=== PATIENT | female | born 1985 ===

== ENCOUNTER 2021-03-27 09:54 | Inpatient (IN) ==
[2021-03-27] MEDS ORDERED: Metoclopramide 10 MG/2 ML VIAL IVP ONE (10:12)
[2021-03-27] MEDS ORDERED: Oxytocin 20 units/ LR 1000 mL 20 UNIT/1,000 ML BAG IVC ONE (10:12)
[2021-03-27] MEDS ORDERED: CeFAZolin 2,000 MG/120 ML BAG IVPB ONE (10:12)
[2021-03-27] MEDS ORDERED: Ringers Solution, Lactated 1,000 ML IVC ONE (10:12)
[2021-03-27] MEDS ORDERED: Famotidine 20 MG/2 ML VIAL IVP ONE (10:12)
[2021-03-27] MEDS ORDERED: Ringers Solution, Lactated 1,000 ML IVC SCH ×2 (10:15→16:13)
[2021-03-27] MEDS ORDERED: Oxytocin 20 units/ LR 1000 mL 20 UNIT/1,000 ML BAG IVC SCH ×2 (10:15→16:13)
[2021-03-27] MEDS ORDERED: *HR* HYDROmorphone PF 0.5 MG/0.5 ML SYRINGE IVP PRN (11:13)
[2021-03-27] MEDS ORDERED: Ondansetron 4 MG/2 ML VIAL IVP PRN ×2 (11:13→16:13)
[2021-03-27] MEDS ORDERED: Promethazine 6.25 MG in Water for inj. (sterile) 20 ML IVPB PRN (11:13)
[2021-03-27 11:19] LABS: Basophils % 0.3 %; Eosinophils % 0.2 %; Hematocrit 37.8 % (35.3-44.9); Hemoglobin 12.6 g/dL (11.5-15.4); Immature Granulocytes % 0.6 % (0-4); Lymphocytes % 16.5 %; Mean Corpuscular HGB Conc 33.3 g/dL (31.6-35.5); Mean Corpuscular Hemoglobin 30.4 pg (28.0-33.3); Mean Corpuscular Volume 91.1 fL (83.0-100.0); Mean Platelet Volume 11.8 fL (9.4-12.4); Monocytes # 0.4 K/mcL (0.0-1.3); Monocytes % 6.6 %; Neutrophils # 4.7 K/mcL (1.6-8.9); Platelet Count 125 K/mcL (140-400); Red Blood Count 4.15 M/mcL (3.82-4.97); Red Cell Distribution Width 13.2 % (11.5-14.5); Segmented Neutrophils % 75.8 %; White Blood Count 6.2 K/mcL (4.3-11.1)
[2021-03-27 11:21] LABS: Influenza A PCR Negative (Negative); Influenza B PCR Negative (Negative); Resp. Syncytial Virus PCR Negative (Negative)
[2021-03-27 11:28] LABS: Amphetamine Screen,Urine Negative ng/mL (Cutoff=1000); Barbiturate Screen,Urine Negative ng/mL (Cutoff=200); Benzodiazepines Screen,Urine Negative ng/mL (Cutoff=200); Cannabinoid Screen,Urine Negative ng/mL (Cutoff = 50); Cocaine Screen,Urine Negative ng/mL (Cutoff= 300); Opiate Screen,Urine Negative ng/mL (Cutoff=300); Phencyclidine Screen,Urine Negative ng/mL (Cutoff=25)
[2021-03-27 11:39] LABS: SARS-CoV-2 by PCR (In House) Positive (Negative)
[2021-03-27] MEDS ORDERED: *HR* FentaNYL (PF) 100 MCG/2 ML VIAL ONE (11:44)
[2021-03-27] MEDS ORDERED: EPHEDrine 50 MG/ML VIAL ONE (11:44)
[2021-03-27] MEDS ORDERED: *HR* Morphine Sulfate/PF 10 MG/10 ML AMPUL ONE (11:44)
[2021-03-27] MEDS ORDERED: Ondansetron 4 MG/2 ML VIAL ONE (11:46)
[2021-03-27] MEDS ORDERED: Acetaminophen IV 1,000 MG/100 ML BAG IVPB ONE (11:46)
[2021-03-27] MEDS ORDERED: Ketorolac 30 MG/ML VIAL ONE (11:46)
[2021-03-27] MEDS ORDERED: Metoclopramide 10 MG/2 ML VIAL IVP PRN (16:13)
[2021-03-27] MEDS ORDERED: Rho Immune Globulin 1,500 UNIT SYRINGE IM ONE (16:13)
[2021-03-27] MEDS: Acetaminophen 325 MG TABLET PO SCH (19:53)
[2021-03-27] MEDS: Simethicone 80 MG TAB.CHEW PO PRN (19:54)
[2021-03-27] MEDS: Ibuprofen 600 MG TABLET PO SCH (19:54)
[2021-03-28] MEDS: Ibuprofen 600 MG TABLET PO SCH ×4 (02:24→22:49)
[2021-03-28] MEDS: Acetaminophen 325 MG TABLET PO SCH ×4 (02:24→22:49)
[2021-03-28] MEDS: *HR* OxyCODONE Immed Rel 5 MG TABLET PO PRN ×2 (02:24→20:58)
[2021-03-28 06:32] LABS: Basophils % 0.1 %; Eosinophils % 0.1 %; Hematocrit 32.1 % (35.3-44.9); Immature Granulocytes % 0.6 % (0-4); Lymphocytes # 1.1 K/mcL (0.6-4.6); Lymphocytes % 15.2 %; Mean Corpuscular HGB Conc 32.7 g/dL (31.6-35.5); Mean Corpuscular Hemoglobin 30.1 pg (28.0-33.3); Monocytes # 0.4 K/mcL (0.0-1.3); Monocytes % 5.8 %; Neutrophils # 5.5 K/mcL (1.6-8.9); Platelet Count 130 K/mcL (140-400); Red Blood Count 3.49 M/mcL (3.82-4.97); Red Cell Distribution Width 13.2 % (11.5-14.5); Segmented Neutrophils % 78.2 %; White Blood Count 7.1 K/mcL (4.3-11.1)
[2021-03-28 06:43] LABS: Hemoglobin 10.5 g/dL (11.5-15.4)
[2021-03-28] MEDS ORDERED: NON-FORMULARY MEDICATION 1 EACH EACH (Pnv No.95/Ferrous Fum/Folic Ac [Prenatal Caplet] 1 E PO SCH (09:00)
[2021-03-28] MEDS: Prenatal Vit/FA 1 EACH TABLET PO SCH (10:39)
[2021-03-28] MEDS: Simethicone 80 MG TAB.CHEW PO PRN (23:40)
[2021-03-29] MEDS: *HR* OxyCODONE Immed Rel 5 MG TABLET PO PRN ×5 (01:16→22:53)
[2021-03-29] MEDS: Ibuprofen 600 MG TABLET PO SCH ×2 (04:58→17:40)
[2021-03-29] MEDS: Acetaminophen 325 MG TABLET PO SCH ×2 (04:58→17:40)
[2021-03-29 08:04] VITALS: O2SAT 98
[2021-03-29] MEDS: Prenatal Vit/FA 1 EACH TABLET PO SCH (09:26)
[2021-03-29] MEDS: Dextromethorphan Polistrx(12h) 30 MG/5 ML UDC PO PRN (21:26)
[2021-03-30] MEDS: Acetaminophen 325 MG TABLET PO SCH ×2 (00:46→08:44)
[2021-03-30] MEDS: Ibuprofen 600 MG TABLET PO SCH ×2 (00:46→08:43)
[2021-03-30] MEDS: Prenatal Vit/FA 1 EACH TABLET PO SCH (08:43)
[2021-03-30] MEDS: Dextromethorphan Polistrx(12h) 30 MG/5 ML UDC PO PRN (09:25)
[2021-03-30 10:11] VITALS: BP 108/72; PULSE 81; TEMP 97.7
== END 2021-03-30 14:45 | disposition home or self-care (01) | DRG 783 ==
LOC: 1NENULAB 09:54 → 1NENUOBS 16:13
PROVIDERS: ADMIT Student in an Organized Health Care Education/Training Program; ATTEND Student in an Organized Health Care Education/Training Program